=== PATIENT | male | born 1960 | race Caucasian/White ===

== ENCOUNTER 2016-11-11 16:28 | Emergency (ER) | payer MEDICARE, OTHER ==
[~2016-11-11] VITALS: Ht 176.5 cm; Wt 100.0 kg
[~2016-11-11 16:28] MED LIST: ATOR1TAB18 PO; CARV12.52 PO; DEXI60CA3 PO; DIAZ10TA PO; DIGO0.12 PO; FENO160T PO; FISH1000 PO; LISI-360 PO; LISI10TA3 PO; MIRA33502 PO; NITR.4 SL; OMEP20TA39 PO; OMEP40CA2 PO; OXYGENTANK NAS.CANULA; ROSU40 PO; SERT-129 PO; TIZA4TAB PO; VITA20003 PO; WARF-23 PO; WARF5 PO; Z.0.OXYGENDME NC
[2016-11-11 16:31] VITALS: BP 197/102; PULSE 103; RESP 20; TEMP 97.8; O2SAT 94
[2016-11-11 17:00] VITALS: BP 198/101; PULSE 83
[2016-11-11 17:07] VITALS: BP 198/91; PULSE 79; RESP 18; O2SAT 92
[2016-11-11] MEDS ORDERED: SODIUM CHLOR 0.9% 1000 ML INJ 1,000 ML IV SCH (17:21)
[2016-11-11 17:24] LABS: BLOOD, URINE NEG (NEG); COMMENT (UR) CULT NOT INDICATED; CULTURE IF INDICATED CULT NOT INDICATED; GLUCOSE,URINE NEG (NEG); HYALINE CAST, URINE 1 /lpf (RARE); KETONE, URINE NEG (NEG); MUCUS URINE FEW /lpf (OCC); NITRITE,URINE NEG (NEG); PH, URINE 5.5 (5.0-8.5); SQUAMOUS EPITHELIAL CELL URINE <1 /hpf (0-5); URINE COLOR YELLOW (YELLW/STRAW)
[2016-11-11] MEDS ORDERED: SODIUM CHLORIDE 0.9% FLUSH 10 ML FLUSH IV FLUSH PRN (17:30)
[2016-11-11] MEDS ORDERED: ONDANSETRON HCL 4 MG/2 ML VIAL IVP ONE (17:30)
[2016-11-11] MEDS ORDERED: MORPHINE SULFATE 4 MG/ML INJ IV PUSH ONE ×2 (17:30→18:15)
[2016-11-11] MEDS ORDERED: OMEG100046 PO (17:33)
[2016-11-11] MEDS ORDERED: CHOL1TAB42 PO (17:33)
[2016-11-11 17:49] VITALS: O2SAT 97
[2016-11-11 17:57] LABS: AUTOMATED NEUTROPHIL # 7.3 TH/MM3 (1.8-7.7); BASOPHIL % 0.5 % (0.0-2.0); EOSINOPHIL # 0.2 TH/MM3 (0-0.4); EOSINOPHIL % 2.2 % (0.0-4.0); HEMATOCRIT 53.4 % (39.0-51.0); HEMO FLAGS DIFF FINAL; LYMPHOCYTE # 1.3 TH/MM3 (1.0-4.8); MEAN CELL VOLUME 100.7 FL (80.0-100.0); MEAN CORPUSCULAR HEMOGLOBIN 33.4 PG (27.0-34.0); MEAN CORPUSCULAR HGB CONC 33.2 % (32.0-36.0); MONO % 6.2 % (0.0-8.0); NEUT % 77.1 % (16.0-70.0); PLATELET COUNT 122 TH/MM3 (150-450); RED CELL DISTRIBUTION WIDTH 16.3 % (11.6-17.2); WHITE BLOOD COUNT 9.5 TH/MM3 (4.0-11.0)
[2016-11-11 18:00] VITALS: BP 200/104; PULSE 89
[2016-11-11 18:09] LABS: INTERNATIONAL NORMALIZED RATIO 1.3 RATIO; PROTHROMBIN TIME - PATIENT 14.4 SEC (9.8-11.6)
--- NOTE | 2016-11-11 18:12 | PD ---
HPI Chief Complaint: GI Complaint Time Seen by Provider: 17:04 Travel History International Travel<30 days: No Contact w/Intl Traveler<30days: No Traveled to known affect area: No History of Present Illness HPI This is a 56-year-old man who presents to the emergency department complaining of severe left-sided flank pain. He states he had the pain for some time off and on. Usually is fairly mild. Improved with bowel movements. States over the past month or so has been getting progressively worse. Over the past day or 2 it's been excruciating. He states his last bowel movement was this morning , was a little bit loose. He felt constipated for the past week. He did take some Pepto-Bismol last night. He started having nausea and vomiting over the past day or so. He states he's had vomiting before in the morning as well as had bad pain. He has a history of an open AAA repair, as well as an appendectomy. No other abdominal surgeries. He has a history of peripheral vascular disease including celiac stents, and multiple stents and bypass in his legs. He is on warfarin for a history of A. fib and previous DVTs. He also has an IVC filter. History Past Medical History Narrative Medical CAD, history of GA, history of stent CHF, history of AICD AAA, status post open repair PVD, status post grafts in both his legs with reportedly stents in his legs as well, as well as celiac stents Hypertension Hyperlipidemia History tobacco use History of DVT, on warfarin History of A. fib reportedly, on warfarin also Anxiety and depression Social History Alcohol Use: No Tobacco Use: No Allergies-Medications (Allergen,Severity, Reaction): Coded Allergies: Iron (Verified Allergy, Severe, SEVERE CRAMPS AND VOMITING, 11/05/16) Reported Meds & Prescriptions Reported Meds & Active Scripts Active Oxygen tank (Oxygen) 1 Ea Tank 2 Liter JAMEY.CANULA CONTINUOUS PRN Oxygen Concentrator Portable Gaseous 2 L/min via Nasal Cannula Continuous For 99 months Tizanidine (Tizanidine HCl) 4 Mg Tab 8 Mg PO BID Diazepam 10 Mg Tab 10 Mg PO BID PRN Sertraline (Sertraline HCl) 100 Mg Tab 100 Mg PO DAILY Carvedilol 12.5 Mg Tab 12.5 Mg PO BID Fenofibrate 160 Mg Tab 160 Mg PO DAILY Lisinopril 10 Mg Tab 10 Mg PO DAILY Atorvastatin (Atorvastatin Calcium) 80 Mg Tab 80 Mg PO HS Warfarin 5 Mg Tab 5 Mg PO DAILY Digoxin 0.125 Mg Tab 0.125 Mg PO DAILY Omeprazole 40 Mg Cap 40 Mg PO DAILY Reported Vitamin D-3 (Cholecalciferol) 2,000 Unit Tab 2,000 Units PO HS Fish Oil 1,000 mg Softgel ([place]-3/Dha/Epa/Fish Oil) 1,000 Mg Capsule 1,000 Mg PO HS Review of Systems Except as stated in HPI: all other systems reviewed are Neg Physical Exam Narrative GENERAL: 56-year-old man, somewhat ill-appearing, vomiting, pale and clammy. SKIN: Clammy. HEAD: Atraumatic. Normocephalic. EYES: Pupils equal and round. No scleral icterus. No injection or drainage. ENT: No nasal bleeding or discharge. Mucous membranes pink and moist. NECK: Trachea midline. No JVD. CARDIOVASCULAR: Regular rate and rhythm. No murmur appreciated. RESPIRATORY: No accessory muscle use. Clear to auscultation. Breath sounds equal bilaterally. GASTROINTESTINAL: Abdomen is rotund, soft. There is no significant tenderness, a little bit of mild tenderness on the left side but not pronounced. MUSCULOSKELETAL: No obvious deformities. No edema. NEUROLOGICAL: Awake and alert. No obvious cranial nerve deficits. Motor grossly within normal limits. Normal speech. PSYCHIATRIC: Appropriate mood and affect; insight and judgment normal. RECTAL: Soft Light brown stool in the rectal vault. Nonbloody. Data Data Last Documented VS Vital Signs Date Time Temp Pulse Resp B/P Pulse Ox O2 Delivery O2 Flow Rate FiO2 11/11/16 19:56 22 11/11/16 19:50 91 176/94 94 Nasal Cannula 2 11/11/16 16:31 97.8 Orders Urinalysis - C+S If Indicated (11/11/16 16:38) Complete Blood Count With Diff (11/11/16 17:21) Comprehensive Metabolic Panel (11/11/16 17:21) Lipase (11/11/16 17:21) Lactic Acid (11/11/16 17:21) Prothrombin Time / Inr (Pt) (11/11/16 17:21) Act Partial Throm Time (Ptt) (11/11/16 17:21) Ct Abd/Pel W Iv Contrast(Rout) (11/11/16 17:21) Iv Access Insert/Monitor (11/11/16 17:21) Ecg Monitoring (11/11/16 17:21) Oximetry (11/11/16 17:21) Morphine Inj (Morphine Inj) (11/11/16 17:30) Ondansetron Inj (Zofran Inj) (11/11/16 17:30) Sodium Chlor 0.9% 1000 Ml Inj (Ns 1000 M (11/11/16 17:21) Sodium Chloride 0.9% Flush (Ns Flush) (11/11/16 17:30) Morphine Inj (Morphine Inj) (11/11/16 18:15) Iohexol 350 Inj (Omnipaque 350 Inj) (11/11/16 19:07) Labs Laboratory Tests Test 11/11/16 11/11/16 17:02 17:39 Urine Color YELLOW Urine Turbidity CLEAR Urine pH 5.5 Urine Specific [place] 1.022 Urine Protein 100 mg/dL Urine Glucose (UA) NEG mg/dL Urine Ketones NEG mg/dL Urine Occult Blood NEG Urine Nitrite NEG Urine Bilirubin NEG Urine Urobilinogen LESS THAN 2.0 MG/DL Urine Leukocyte Esterase NEG Urine RBC LESS THAN 1 /hpf Urine WBC 1 /hpf Urine Squamous Epithelial <1 /hpf Cells Urine Hyaline Casts 1 /lpf Urine Mucus FEW /lpf Microscopic Urinalysis Comment CULT NOT INDICATED White Blood Count 9.5 TH/MM3 Red Blood Count 5.30 MIL/MM3 Hemoglobin 17.7 GM/DL Hematocrit 53.4 % Mean Corpuscular Volume 100.7 FL Mean Corpuscular Hemoglobin 33.4 PG Mean Corpuscular Hemoglobin 33.2 % Concent Red Cell Distribution Width 16.3 % Platelet Count 122 TH/MM3 Mean Platelet Volume 9.8 FL Neutrophils (%) (Auto) 77.1 % Lymphocytes (%) (Auto) 14.0 % Monocytes (%) (Auto) 6.2 % Eosinophils (%) (Auto) 2.2 % Basophils (%) (Auto) 0.5 % Neutrophils # (Auto) 7.3 TH/MM3 Lymphocytes # (Auto) 1.3 TH/MM3 Monocytes # (Auto) 0.6 TH/MM3 Eosinophils # (Auto) 0.2 TH/MM3 Basophils # (Auto) 0.0 TH/MM3 CBC Comment DIFF FINAL Differential Comment Prothrombin Time 14.4 SEC Prothromb Time International 1.3 RATIO Ratio Activated Partial 35.0 SEC Thromboplast Time Sodium Level 140 MEQ/L Potassium Level 4.7 MEQ/L Chloride Level 107 MEQ/L Carbon Dioxide Level 28.6 MEQ/L Anion Gap 4 MEQ/L Blood Urea Nitrogen 27 MG/DL Creatinine 1.64 MG/DL Estimat Glomerular Filtration 44 ML/MIN Rate Random Glucose 91 MG/DL Lactic Acid Level 1.1 mmol/L Calcium Level 9.1 MG/DL Total Bilirubin 0.5 MG/DL Aspartate Amino Transf 16 U/L (AST/SGOT) Alanine Aminotransferase 25 U/L (ALT/SGPT) Alkaline Phosphatase 93 U/L Total Protein 7.2 GM/DL Albumin 3.4 GM/DL Lipase 264 U/L [facility] Medical Decision Making Medical Screen Exam Complete: Yes Emergency Medical Condition: Yes Interpretation(s) LABS: CBC remarkable for hemoglobin 17.7 CMP remarkable for elevated BUN/creatinine, asthma GFR 44 Lactate 1.1 Lipase normal INR 1.3 UA negative Last Impressions Abdomen/Pelvis CT 11/11/16 1721 Signed Impressions: Service Date/Time: Friday, November 11, 2016 19:04 - CONCLUSION: 1. Extensive abdominal aortic aneurysm extending from the diaphragms to the level just above the bifurcation measuring 5.5 cm AP x 5.6 cm transverse x 15 cm in sagittal dimension. Extensive mural thrombus is noted throughout the aneurysm lumen. 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 2. Occluded left iliac artery. The patient is status post femoral-femoral bypass crossover graft placement. 3. Fatty infiltration of the liver. 4. Multiple left renal cysts. 5. Degenerative changes and scoliosis of the thoracolumbar spine. Steve George MD Differential Diagnosis Mesenteric ischemia, obstruction, constipation, diverticulitis, other Narrative Course Medical decision making INITIAL: 56-year-old man presents to the emergency department complaining of left-sided flank pain. Extensive medical history including history of peripheral vascular disease and celiac disease, open AAA repair, and concern for worsening mesenteric ischemia versus possible obstruction, versus other. We 'll check labs, imaging, pain control, IV fluids, reassess. FINAL: 56 year-old woman, impressive vascular disease. Reviewed his CTA from [facility]. Patient has large AAA that is occluded his SMA, FRANCIS, and celiac. He is basically fell off to collaterals 1 from an internal mammary and one from the femoral artery. I think is having intermittent mesenteric ischemia. He looks well now. Symptoms are chronic in nature but worse over the past couple days. He's feeling much improved now. I spoke with Dr. Chaudhari , the patient's vascular surgeon. He'll follow-up with the patient early this week. Patient's INR is low. They will follow up with her INR clinic tomorrow, will take a double dose of warfarin tonight, and outpatient follow-up with her vascular surgeon. Diagnosis Primary Impression: Chronic mesenteric ischemia Additional Instructions: Follow-up with Dr. Chaudhari's office in the next one to 2 days. Follow-up with your warfarin clinic for further titration of your warfarin doses. Return to the emergency department for any worsening abdominal pain, or any other new or worsening symptoms. Take Lortab if needed for pain. Med/Other Pt SpecificInfo: Prescription(s) given Scripts Hydrocodone-Acetaminophen (Lortab)5-325 Mg Tab1-2 Tab PO Q6H PRN (PAIN) #12 TAB Prov:Brent Lopez MD 11/11/16 Disposition: 01 DISCHARGE HOME Condition: Stable Brent Lopez MD Nov 11, 2016 18:11
[2016-11-11 18:26] LABS: ANION GAP 4 MEQ/L (5-15); AST (GOT) 16 U/L (15-37); BICARBONATE 28.6 MEQ/L (21.0-32.0); BLOOD UREA NITROGEN 27 MG/DL (7-18); CHLORIDE 107 MEQ/L (98-107); GLOMERULAR FILTRATION RATE 44 ML/MIN (>89); POTASSIUM 4.7 MEQ/L (3.5-5.1); SODIUM (NA) 140 MEQ/L (136-145)
[2016-11-11 18:28] LABS: ALT (GPT) 25 U/L (12-78)
[2016-11-11 18:29] LABS: ALKALINE PHOSPHATASE 93 U/L (45-117); TOTAL BILIRUBIN ADULT 0.5 MG/DL (0.2-1.0)
[2016-11-11] MEDS ORDERED: IOHEXOL 350 MG/ML 10 ML VIAL (for RAD DIAG) IV ONE (19:07)
--- NOTE | 2016-11-11 19:32 | RADRPT ---
EXAM DATE/TIME: 11/11/2016 19:04 [facility] COMPARISON: No previous studies available for comparison. INDICATIONS : Left-sided abdominal pain and constipation X one week. IV CONTRAST: 91 cc Omnipaque 350 (iohexol) IV ORAL CONTRAST: No oral contrast ingested. RADIATION DOSE: 17.70 CTDIvol (mGy) MEDICAL HISTORY : Cardiovascular disease. Congestive heart failure. Diabetes mellitus type 2. SURGICAL HISTORY : Appendectomy. ENCOUNTER: Initial ACUITY: 1 week PAIN SCALE: 7/10 LOCATION: Abdomen TECHNIQUE: Volumetric scanning of the abdomen and pelvis was performed. Using automated exposure control and ad justment of the mA and/or kV according to patient size, radiation dose was kept as low as reasonably achievable to obtain optimal diagnostic quality images. DICOM format image data is available electro nically for review and comparison. FINDINGS: There is an extensive abdominal aortic aneurysm extending from the level of the diaphragm inferiorly to just above the level of the aortic bifurcation. This extends for approximately 15 cm. The aneury sm involves the origins of the celiac artery, superior mesenteric artery and renal arteries bilateral ly. 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 The aneurysm measures 5.5 cm AP x 5.6 cm transverse dimension. Extensive mural thrombus is noted within the aneurysm. There is occlus ion of the left iliac artery. The patient has had previous fem-fem crossover graft. There is fatty infiltration of the liver. No focal hepatic mass is noted. No biliary ductal dilatation is noted. There are tiny gallstones within the gallbladder. The pancreas is normal. The spleen is normal. Th e adrenal glands are normal bilaterally. There is marked atrophy of the left kidney. The left kidne y demonstrates multiple cysts. The right kidney is normal in size and demonstrates no hydronephrosis , mass or stone. There is an inferior vena cava filter. No retroperitoneal lymphadenopathy is noted . The urinary bladder is unremarkable. No bowel obstruction is noted. Degenerative changes and sco liosis of the thoracolumbar spine are noted. CONCLUSION: 1. Extensive abdominal aortic aneurysm extending from the diaphragms to the level just above the bifu rcation measuring 5.5 cm AP x 5.6 cm transverse x 15 cm in sagittal dimension. Extensive mural throm bus is noted throughout the aneurysm lumen. There is almost complete occlusion of the left renal art bautista as well as involvement of the origins of the celiac and superior mesenteric artery and the right renal artery. 2. Occluded left iliac artery. The patient is status post femoral-femoral bypass crossover graft pl acement. 3. Fatty infiltration of the liver. 4. Multiple left renal cysts. 5. Degenerative changes and scoliosis of the thoracolumbar spine. Steve George MD on November 11, 2016 at 19:14 Board Certified Radiologist. This report was verified electronically.
[2016-11-11 19:50] VITALS: BP 176/94; PULSE 91; RESP 22; O2SAT 94
[2016-11-11] MEDS ORDERED: HYDR-3533 PO (20:22)
== END 2016-11-11 20:56 | disposition home or self-care (01) ==
LOC: NEPD 16:28
DX: I99.8 Other disorder of circulatory system (principal); R11.2 Nausea with vomiting, unspecified; I10 Essential (primary) hypertension; E78.5 Hyperlipidemia, unspecified; Z79.01 Long term (current) use of anticoagulants; Z86.718 Personal history of other venous thrombosis and embolism; Z86.79 Personal history of other diseases of the circulatory system; Z86.59 Personal history of other mental and behavioral disorders
CPT/HCPCS: 74177; 80053; 81001; 83605; 83690; 85025; 85610; 85730; 96361; 96374; 96375; 96376; 99285; J2270; J2405; J7030; Q9967

== ENCOUNTER 2016-11-13 13:30 | Emergency (ER) | payer MEDICARE ==
[~2016-11-13] VITALS: Ht 177.8 cm; Wt 100.0 kg
[~2016-11-13 13:30] MED LIST changes: +CHOL1TAB42 PO; -DEXI60CA3 PO; -FISH1000 PO; +HYDR-3533 PO; -LISI-360 PO; -MIRA33502 PO; -NITR.4 SL; +OMEG100046 PO; -OMEP20TA39 PO; -ROSU40 PO; -VITA20003 PO; -WARF5 PO; -Z.0.OXYGENDME NC
[2016-11-13 13:31] VITALS: BP 143/79; PULSE 89; RESP 22; TEMP 97.5; O2SAT 86
--- NOTE | 2016-11-13 13:42 | PD ---
Physical Exam Date Seen by Provider: Nov 13, 2016 Time Seen by Provider: 13:39 Data Data Last Documented VS Vital Signs Date Time Temp Pulse Resp B/P Pulse Ox O2 Delivery O2 Flow Rate FiO2 11/13/16 13:31 97.5 89 22 143/79 86 MDM Supervised Visit with VICENTE: No Narrative Course 56 YO M with complaint of abdominal pain. Worsening since being seen earlier this week. States "them pain pills aren't working." HERE FOR PAIN CONTROL Hx mesenteric ischemia. Sees Dr. Chaudhari tomorrow. Vitals reviewed. Patient seen in triage, awaiting bed placement. Ashleigh Sloan Nov 13, 2016 13:42
--- NOTE | 2016-11-13 14:08 | PD ---
HPI Chief Complaint: Pain: Acute or Chronic Time Seen by Provider: 14:08 Travel History International Travel<30 days: No Contact w/Intl Traveler<30days: No Traveled to known affect area: No History of Present Illness HPI 56-year-old male came to the emergency room with history of abdominal pain and flank pain. Patient was here 2 days ago for the same complain when he got a CAT scan which showed severe abdominal aneurysmal disease. The ER physician had discussed the case with the vascular surgeon Dr. Chaudhari. Patient had seen him once before and me. He compared a CT that was done as an outpatient with the CT done 2 days ago and said it did not look any different and plan was to discharge the patient home. However patient says he still in pain and hence came back. Patient is very upset for some reason. Vital signs otherwise stable. PFSH Past Medical History Narrative Medical List of his past medical, surgical, social and family history was reviewed from the nursing note. Hx Anticoagulant Therapy: Yes (WARFARIN) Asthma: Yes Autoimmune Disease: No Anxiety: Yes Depression: Yes Heart Rhythm Problems: Yes Cancer: No Cardiac Catheterization: Yes Cardiovascular Problems: Yes High Cholesterol: Yes Chemotherapy: No Chest Pain: Yes Congestive Heart Failure: Yes COPD: Yes Coronary Artery Disease: Yes Diabetes: Yes Endocrine: Yes Genitourinary: Yes Hypertension: Yes Immune Disorder: No Implanted Vascular Access Dvce: Yes Kidney Stones: No Musculoskeletal: Yes Neurologic: Yes (NEUROPATHY) Psychiatric: No Reproductive: No Respiratory: Yes (COPD) Myocardial Infarction: Yes Radiation Therapy: No Renal Failure: No Sleep Apnea: No Thyroid Disease: No Triglycerides - High: Yes ?: Not Past Surgical History Abdominal Surgery: Yes AICD: Yes Appendectomy: Yes Arteriovenous Shunt: No Cardiac Surgery: Yes (aorta repair ) Coronary Stent: Yes Ear Surgery: No Endocrine Surgery: No Eye Surgery: No Genitourinary Surgery: No Gynecologic Surgery: No Insulin Pump: No Joint Replacement: No Oral Surgery: No Pacemaker: Yes (DEFIB) Thoracic Surgery: No Other Surgery: Yes (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) Social History Alcohol Use: No (OCC) Tobacco Use: No Substance Use: Yes (marijuana) Allergies-Medications (Allergen,Severity, Reaction): Coded Allergies: Iron (Verified Allergy, Severe, SEVERE CRAMPS AND VOMITING, 11/13/16) Comments List of his allergies reviewed from the nursing note. Reported Meds & Prescriptions Reported Meds & Active Scripts Active Hydrocodone-Acetaminophen 5-325 mg Tab 1 Tab PO Q6H PRN Lortab (Hydrocodone-Acetaminophen) 5-325 Mg Tab 1-2 Tab PO Q6H PRN Oxygen tank (Oxygen) 1 Ea Tank 2 Liter JAMEY.CANULA CONTINUOUS PRN Oxygen Concentrator Portable Gaseous 2 L/min via Nasal Cannula Continuous For 99 months Tizanidine (Tizanidine HCl) 4 Mg Tab 8 Mg PO BID Diazepam 10 Mg Tab 10 Mg PO BID PRN Sertraline (Sertraline HCl) 100 Mg Tab 100 Mg PO DAILY Carvedilol 12.5 Mg Tab 12.5 Mg PO BID Fenofibrate 160 Mg Tab 160 Mg PO DAILY Lisinopril 10 Mg Tab 10 Mg PO DAILY Atorvastatin (Atorvastatin Calcium) 80 Mg Tab 80 Mg PO HS Warfarin 5 Mg Tab 5 Mg PO DAILY Digoxin 0.125 Mg Tab 0.125 Mg PO DAILY Omeprazole 40 Mg Cap 40 Mg PO DAILY Reported Vitamin D-3 (Cholecalciferol) 2,000 Unit Tab 2,000 Units PO HS Fish Oil 1,000 mg Softgel ([place]-3/Dha/Epa/Fish Oil) 1,000 Mg Capsule 1,000 Mg PO HS Narrative Medication List of his home medications reviewed from the nursing note. Review of Systems Except as stated in HPI: all other systems reviewed are Neg Physical Exam Narrative GENERAL: Awake, alert, moderate distress SKIN: Focused skin assessment warm/dry. HEAD: Atraumatic. Normocephalic. EYES: Pupils equal and round. No scleral icterus. No injection or drainage. ENT: No nasal bleeding or discharge. Mucous membranes pink and moist. NECK: Trachea midline. No JVD. CARDIOVASCULAR: Regular rate and rhythm. No murmur appreciated. RESPIRATORY: No accessory muscle use. Clear to auscultation. Breath sounds equal bilaterally. GASTROINTESTINAL: Abdomen soft, non-tender, nondistended. Hepatic and splenic margins not palpable. MUSCULOSKELETAL: No obvious deformities. No clubbing. No cyanosis. No edema. NEUROLOGICAL: Awake and alert. No obvious cranial nerve deficits. Motor grossly within normal limits. Normal speech. PSYCHIATRIC: Appropriate mood and affect; insight and judgment normal. Data Data Last Documented VS Vital Signs Date Time Temp Pulse Resp B/P Pulse Ox O2 Delivery O2 Flow Rate FiO2 11/13/16 13:31 97.5 89 22 143/79 86 Orders Morphine Inj (Morphine Inj) (11/13/16 14:45) Radiology Film Requests (11/13/16 ) MDM Medical Decision Making Medical Screen Exam Complete: Yes Emergency Medical Condition: Yes Medical Record Reviewed: Yes Differential Diagnosis Abdominal aneurysm, chronic pain Narrative Course 3:06 PM the vascular surgeon Dr. Chaudhari came down to see the patient. Patient to be followed up in [place]. He is calling [place] himself to have the follow-up arranged. He wants the patient to be discharged home on pain medications. Procedures EKG Prior to Arrival: No Physician Communication Physician Communication Dr. Chaudhari Diagnosis Primary Impression: Abdominal aneurysm Additional Impression: Chronic pain Qualified Code: G89.29 - Other chronic pain Referrals: Primary Care Physician Additional Instructions: Please follow-up in [place] with the surgeon who is name and number been given to you by the vascular surgeon. The appointment is on this Saturday. Take the pain medication as per the prescription direction. Do not drive while taking the medication as it'll make you groggy. Med/Other Pt SpecificInfo: Prescription(s) given Scripts Hydrocodone-Acetaminophen 5-325 mg Tab1 Tab PO Q6H PRN (PAIN) #20 TAB Ref 0 Prov:Oanh Akhtar MD 11/13/16 Disposition: 01 DISCHARGE HOME Condition: Stable Oanh Akhtar MD Nov 13, 2016 14:08
[2016-11-13] MEDS ORDERED: MORPHINE SULFATE 4 MG/ML INJ IV PUSH ONE (14:45)
[2016-11-13] MEDS ORDERED: HYDR-3516 PO (15:10)
--- NOTE | 2016-11-13 16:20 | PD.VS.PN ---
Subjective Subjective/Hospital Course 56 yo male with h/o AAA whom I saw in clinic a couple of weeks ago. He has a known TAAA, L iliac occlusion and SMA, celiac, and L renal artery occlusion. He has flank pain that is not related to po intake and in fact improves with po intake. Had a CT on Saturday and I compared that with the one from 6 weeks ago. Stable TAAA and stable visceral occlusive disease. Objective Vitals/I&O Date Time Temp Pulse Resp B/P Pulse Ox O2 Delivery O2 Flow Rate FiO2 11/13/16 13:31 97.5 89 22 143/79 86 Physical Exam No peritonitis. No reproducible pain. Assessment and Plan Plan I have set him up to be seen at [facility] in [place] on Saturday at 2:15p. He will take a copy of the most recent CT. Steve Chaudhari MD Nov 13, 2016 16:20
== END 2016-11-13 16:01 | disposition home or self-care (01) ==
LOC: NEPD 13:30
DX: I71.4 Abdominal aortic aneurysm, without rupture (principal); G89.29 Other chronic pain; E11.9 Type 2 diabetes mellitus without complications; I10 Essential (primary) hypertension; E78.5 Hyperlipidemia, unspecified; I25.2 Old myocardial infarction; Z79.01 Long term (current) use of anticoagulants; Z86.59 Personal history of other mental and behavioral disorders; Z86.79 Personal history of other diseases of the circulatory system; Z87.09 Personal history of other diseases of the respiratory system; Z87.448 Personal history of other diseases of urinary system; Z87.39 Personal history of other diseases of the musculoskeletal system and connective tissue; Z86.69 Personal history of other diseases of the nervous system and sense organs
CPT/HCPCS: 96374; 99284; J2270

== ENCOUNTER 2016-12-01 22:48 | Emergency (ER) | payer MEDICARE ==
[~2016-12-01 22:48] MED LIST changes: +HYDR-3516 PO
[2016-12-01 22:54] VITALS: BP 137/75; PULSE 82; RESP 21; O2SAT 95
[2016-12-01] MEDS ORDERED: HYDROmorphone HCL PF 1 MG/ML VIAL IVS ONE (23:15)
[2016-12-01] MEDS ORDERED: PERC5TAB12 PO (23:17)
--- NOTE | 2016-12-01 23:17 | PD ---
HPI Chief Complaint: Abdominal Pain Time Seen by Provider: 23:02 Travel History International Travel<30 days: No Contact w/Intl Traveler<30days: No Traveled to known affect area: No History of Present Illness HPI Mr. swift is a 56-year-old male with extensive vascular disease who suffers from [place] chronic mesenteric ischemia. In short, his entire bowel supplied by collaterals from 1 femoral artery and an internal mammary. He's been having worsening abdominal pain over the past couple months. Been gradually worsening. He seen Dr. Chaudhari. [facility] He apparently is going to get a procedure next week. He is not on any pain medicine now and states he still have severe pain. He states the same pain that he's had for the past several weeks. No acute change. History Past Medical History Narrative Medical CAD, history of OK, history of stent CHF, history of AICD AAA, status post open repair PVD, status post grafts in both his legs with reportedly stents in his legs as well, as well as celiac stents Hypertension Hyperlipidemia History tobacco use History of DVT, on warfarin History of A. fib reportedly, on warfarin also Anxiety and depression Tetanus Vaccination: Unknown Social History Alcohol Use: No (OCC) Tobacco Use: No Allergies-Medications (Allergen,Severity, Reaction): Coded Allergies: Iron (Verified Allergy, Severe, SEVERE CRAMPS AND VOMITING, 12/01/16) Reported Meds & Prescriptions Reported Meds & Active Scripts Active Hydrocodone-Acetaminophen 5-325 mg Tab 1 Tab PO Q6H PRN Lortab (Hydrocodone-Acetaminophen) 5-325 Mg Tab 1-2 Tab PO Q6H PRN Oxygen tank (Oxygen) 1 Ea Tank 2 Liter JAMEY.CANULA CONTINUOUS PRN Oxygen Concentrator Portable Gaseous 2 L/min via Nasal Cannula Continuous For 99 months Tizanidine (Tizanidine HCl) 4 Mg Tab 8 Mg PO BID Diazepam 10 Mg Tab 10 Mg PO BID PRN Sertraline (Sertraline HCl) 100 Mg Tab 100 Mg PO DAILY Carvedilol 12.5 Mg Tab 12.5 Mg PO BID Fenofibrate 160 Mg Tab 160 Mg PO DAILY Lisinopril 10 Mg Tab 10 Mg PO DAILY Atorvastatin (Atorvastatin Calcium) 80 Mg Tab 80 Mg PO HS Warfarin 5 Mg Tab 5 Mg PO DAILY Digoxin 0.125 Mg Tab 0.125 Mg PO DAILY Omeprazole 40 Mg Cap 40 Mg PO DAILY Reported Vitamin D-3 (Cholecalciferol) 2,000 Unit Tab 2,000 Units PO HS Fish Oil 1,000 mg Softgel ([place]-3/Dha/Epa/Fish Oil) 1,000 Mg Capsule 1,000 Mg PO HS Review of Systems Except as stated in HPI: all other systems reviewed are Neg Physical Exam Narrative GENERAL: 56-year-old man, little bit chronically ill appearing. No acute distress. HEAD: Atraumatic. Normocephalic. EYES: Pupils equal and round. No scleral icterus. No injection or drainage. ENT: No nasal bleeding or discharge. Mucous membranes pink and moist. NECK: Trachea midline. No JVD. CARDIOVASCULAR: Regular rate and rhythm. No murmur appreciated. RESPIRATORY: No accessory muscle use. Clear to auscultation. Breath sounds equal bilaterally. GASTROINTESTINAL: Abdomen soft, non-tender, nondistended. Hepatic and splenic margins not palpable. MUSCULOSKELETAL: No obvious deformities. Data Data Last Documented VS Vital Signs Date Time Temp Pulse Resp B/P Pulse Ox O2 Delivery O2 Flow Rate FiO2 12/01/16 22:54 82 21 137/75 95 Orders Hydromorphone Pf Inj (Dilaudid Pf Inj) (12/01/16 23:15) MDM Medical Decision Making Medical Screen Exam Complete: Yes Emergency Medical Condition: Yes Differential Diagnosis Chronic mesenteric ischemia, acute mesenteric ischemia, other Narrative Course Medical decision-making. Is a 56-year-old male presents emergency Department with ongoing abdominal pain, related to mesenteric ischemia. He looks overall well. Doesn't appear to be an acute worsening. Simply ongoing pain and not having any pain medications. He is due to follow-up next week with [facility]. I think it would be reasonable to give him pain medicines until then. I don't think to be any value in repeating office diagnostic studies if these had however if he has any worsening pain despite these pain medicines he will come back to the ER for repeat evaluation. Diagnosis Primary Impression: Chronic mesenteric ischemia Additional Instructions: Take Percocet as prescribed. Use MiraLAX if needed for constipation. Follow-up with your surgeon at [facility] as scheduled. Return to the emergency department for any new or worsening symptoms. Med/Other Pt SpecificInfo: Prescription(s) given Scripts Oxycodone-Acetaminophen (Percocet)5-325 mg Tab1-2 Tab PO Q6H PRN (PAIN) #30 TAB Ref 0 Prov:Brent Lopez MD 12/01/16 Disposition: 01 DISCHARGE HOME Condition: Stable Brent Lopez MD Dec 01, 2016 23:17
[2016-12-01] MEDS ORDERED: ONDANSETRON HCL 4 MG/2 ML VIAL ONE (23:32)
[2016-12-02 00:08] VITALS: BP 123/69; TEMP 98.5
[2016-12-04] MEDS ORDERED: IPRA17I INH ×2 (15:10→15:27)
[2016-12-04] MEDS ORDERED: SALM50I INH (15:27)
== END 2016-12-02 00:24 | disposition home or self-care (01) ==
LOC: NEPC 22:48
DX: K55.1 Chronic vascular disorders of intestine (principal)
CPT/HCPCS: 96374; 96375; 99284; J1170; J2405

== ENCOUNTER 2017-04-26 05:41 | Day surgery (SDC) | payer MEDICARE ==
[~2017-04-26] VITALS: Ht 177.8 cm; Wt 101.6 kg
[~2017-04-26 05:41] MED LIST changes: -ATOR1TAB18 PO; +ATOR80TA45 PO; -HYDR-3516 PO; -HYDR-3533 PO; +IPRA17I INH; +OXYGENDME NAS.CANULA; +SALM50I INH
[2017-04-26 06:10] VITALS: BP 143/74; PULSE 74; RESP 16; TEMP 98.5; O2SAT 95
[2017-04-26] MEDS ORDERED: NS 1000 ML IV SCH (06:15)
[2017-04-26] MEDS ORDERED: POVIDONE IODINE 5% (ANTISEPSIS KIT) 4 APPLICATIONS EACH NARE SCH (06:15)
[2017-04-26] MEDS ORDERED: SODIUM CHLORID 0.9% 500 ML IV PRN (06:15)
[2017-04-26] MEDS ORDERED: ceFAZolin 2 GM PREMIX 50 ML IV SCH (06:15)
[2017-04-26] MEDS ORDERED: LORazepam 1 MG TAB SL SCH (06:15)
[2017-04-26] MEDS ORDERED: METOPROLOL TARTRATE 25 MG TAB PO PRN (06:15)
[2017-04-26] MEDS ORDERED: Hold AM Insulin & AM Hypoglycemic medications in diabetic patients PRN (06:15)
[2017-04-26] MEDS ORDERED: VANCOMYCIN 1000 MG/NS 250 ML IV SCH ×2 (06:15)
[2017-04-26] MEDS ORDERED: LACTATED RINGER'S 1000 ML IV PRN (06:15)
[2017-04-26] MEDS ORDERED: INSULIN HUMAN REGULAR 1,000 UNITS/10 ML VIAL SQ PRN (06:15)
[2017-04-26] MEDS ORDERED: POVIDONE IODINE 5% (ANTISEPSIS KIT) 4 APPLICATIONS EACH NARE PRN (06:15)
[2017-04-26] MEDS ORDERED: NO Heparin, Lovenox, Coumadin at least 12 hours prior to procedure. PRN (06:15)
[2017-04-26] MEDS ORDERED: CHLORHEXIDINE GLUCONATE 2 % 1 PACK (2 CLOTHS) TOPICAL PRN (06:15)
[2017-04-26] MEDS ORDERED: MUPIROCIN 2% OINT 1 APPLIC/GM SYR NASAL SCH (06:15)
[2017-04-26] MEDS ORDERED: CHLORHEXIDINE GLUCONATE 2 % 1 PACK (2 CLOTHS) TOPICAL SCH (06:15)
[2017-04-26 07:01] LABS: BASOPHIL # 0.1 TH/MM3 (0-0.2); BASOPHIL % 0.6 % (0.0-2.0); EOSINOPHIL # 0.5 TH/MM3 (0-0.4); EOSINOPHIL % 4.8 % (0.0-4.0); HEMATOCRIT 46.3 % (39.0-51.0); HEMO FLAGS DIFF FINAL; LYMPHOCYTE # 1.4 TH/MM3 (1.0-4.8); MEAN CELL VOLUME 93.6 FL (80.0-100.0); MEAN CORPUSCULAR HEMOGLOBIN 29.6 PG (27.0-34.0); MEAN CORPUSCULAR HGB CONC 31.6 % (32.0-36.0); MONO % 5.3 % (0.0-8.0); NEUT % 74.3 % (16.0-70.0); PLATELET COUNT 130 TH/MM3 (150-450); RED BLOOD COUNT 4.94 MIL/MM3 (4.50-5.90); RED CELL DISTRIBUTION WIDTH 18.4 % (11.6-17.2); WHITE BLOOD COUNT 9.5 TH/MM3 (4.0-11.0)
[2017-04-26 07:13] LABS: INTERNATIONAL NORMALIZED RATIO 3.3 RATIO; PROTHROMBIN TIME - PATIENT 33.5 SEC (9.8-11.6)
[2017-04-26 07:18] LABS: BICARBONATE 38.4 MEQ/L (21.0-32.0); POTASSIUM 4.8 MEQ/L (3.5-5.1)
[2017-04-26] MEDS ORDERED: OMEP20TA93 PO (07:46)
[2017-04-26] MEDS ORDERED: LISI10TA3 PO (07:46)
[2017-04-26] MEDS ORDERED: CARV25TA PO (07:46)
--- NOTE | 2017-04-26 07:49 | EKG ---
Date Performed: 04/26/2017 Time Performed: 07:02:16 PTAGE: 57 years EKG: Sinus rhythm . Left axis deviation Inferior infarct - age undetermined Nonspecific T wave changes Low QRS voltages in precordial leads Abnormal ECG No significant change from prior electrocardiogram. PREVIOUS TRACING : 06/23/2015 15.48 DOCTOR: Gideon Keller Interpretating Date/Time 04/26/2017 07:47:51
[2017-04-26] MEDS ORDERED: ONDANSETRON HCL 4 MG/2 ML VIAL ONE (10:52)
[2017-04-26] MEDS ORDERED: MORPHINE SULFATE 4 MG/ML INJ ONE (10:52)
[2017-04-26] MEDS ORDERED: LIDOCAINE HCL 2% 50 ML VIAL ONE (15:29)
[2017-04-26] MEDS ORDERED: VANCOMYCIN 500 MG VIAL ONE (15:29)
[2017-04-26] MEDS ORDERED: DO NOT ADM ANY ANTICOAGULANT DRUGS PRN (16:45)
--- NOTE | 2017-04-26 16:53 | CATHPROC ---
[facility] HIS Report Study Information Study Number Admission Scheduled Start Study Start [id number] Apr 26 2017 5:41AM 04/26/2017 04/26/2017 [place] Service Cardiac Pacer/ICD Admit Source Facility Department Other [facility] [address] - [employer] Physician and Clinical Staff Initial Claire Tomlinson Deck Hand Nava Funk RN Other Anesthesia, SWEEPING COMPOUND BLENDER Recorder Kip Verma,SHYANNE(BS) ScrNenita Conner RCIS TECH2 Equipment Time Medical Records Receptionist Description Size Mfg Part Number Used/Scraped DERMABOND, ADHESIVE SKIN [id number] 15:25 CORDIS/PACER * Used GLUE MINI *[id number] 15:25 MEDLINE IND[employer] SUTURE, STRIP PLUS 1/2" * Used *[id number] 15:25 MEDLINE PACER QUILES, LIMB * 2530 *[id number] Used [id number] 15:25 MEDLINE PACER PACK, PACER CUSTOM * Used *[id number] 15:51 Needle Sponge Count 20 200 Used 15:51 Needle Sponge Count 3 33 Used 15:51 Needle Sponge Count 3 3 Used SUTURE, 2-0 VICRYL [CT1] ([id number]) [id number] 15:25 [facility],WARM AIR CCL * Used *[id number] [facility] PAD, ELECTROSURGICAL 15:25 * [id number] *[id number] Used SURGICAL GROUNDING ORANGE History: Current Medications Medication Dosage/Unit Route Frequency Last Date/Time Taken Coumadin History: Allergies Allergy Reaction iron SEVERE CRAMPS AND VOMITING ferrous fumarate SEVERE CRAMPS AND VOMITING ferrous sulfate SEVERE CRAMPS AND VOMITING multivitamin with iron,other SEVERE CRAMPS AND VOMITING minerals ferumoxytol SEVERE CRAMPS AND VOMITING multivitamin infusion, adult no.4 SEVERE CRAMPS AND VOMITING with vitamin K Labs Hgb (g/dl) Hct (%) RBC (MIL/MM3) WBC (l/cumm) Platelets (thousands) 11.60-17.00 35.00-51.00 4.00-5.90 4.00-11.00 150.00-450.00 14.6 46.3 4.9 9.5 130 Glucose (mg/dl) BUN (mg/dl) Creatinine (mg/dl) BUN:Creatinine (1:x) 74.00-106.00 7.00-18.00 0.50-1.30 10.00-20.00 113 24 1.3 18.5 Na (meq/l) K (meq/l) Cl (meq/l) CO2 (mmol/L) Ca (mg/dl) 136.00-145.00 3.50-5.10 98.00-107.00 21.00-32.00 8.50-10.10 140 4.8 100 38.4 9.2 PT (sec) PTT (sec) INR (PTT:PT) 9.80-11.60 24.30-30.10 0.90-1.10 33.5 38 3.3 CPK-MB (ng/ML) 0.50-3.60 Not Drawn Medication Medication Total Dose (Bolus/Oral) Medication Total Dosage/Unit 2% XYLOCAINE 50 mL Medications (Bolus/Oral) Medication Time Given Dosage/Unit Administered By Reason 2% XYLOCAINE 04/26/2017 4:19:40 PM 50 mL Claire Pickens 50 mL 2% XYLOCAINE given in lab by Claire Pickens in Left shoulder via Subcutaneous. Medication (Drip) Medication Time Given Dosage/Unit Concentration/Unit Diluent (ml) Solution ANCEF 04/26/2017 3:34:02 PM 2 g 2 g ANCEF given in lab by Anesthesia, SWEEPING COMPOUND BLENDER via Peripheral IV. Ordered by Claire Pickens. IV Solutions 04/26/2017 3:16:58 PM 0 mL (IV) 500 NaCl .9 Patient arrived on IV Solutions in Right Wrist via Peripheral IV. Pump/Drip Flow = 20 ml/hr using NaC l .9. Ordered by Claire Pickens. VANCOMYCIN DRIP 04/26/2017 3:34:00 PM 1 g 1 g VANCOMYCIN DRIP given in lab by Anesthesia, SWEEPING COMPOUND BLENDER in Right Wrist via Peripheral IV. Ordered by Claire Carrera. Initial Case Assessment Cardiovascular HR Rhythm NIBP Chest Pain 62 sr 104/57 0 Edema Present Skin color Skin None Normal Warm Dry Neurological State Oriented to time-place- Lethargic Moves all extremities person Respiration - General Respiration Rate SpO2 (%) (B/min) 18 95 Final Case Assessment Cardiovascular HR Rhythm NIBP Chest Pain 86 sr 130/62 0 Edema Present Skin color Skin None Normal Warm Dry Neurological State Oriented to time-place- Lethargic Moves all extremities person Respiration - General Respiration Rate SpO2 (%) (B/min) 18 95 Chronological Log Time Study Chronological Log 15:16:34 Patient arrived via Bed. 15:16:35 Patient Name, D.O.B, / Armband Verified By R.N. 15:16:35 Consent signed by the physician and the patient and verified by the [employer] staff. 15:16:38 Pre-op and post- op instructions given; patient acknowledges understanding of instruction s. 15:16:50 Patient has been NPO for More than 6Hrs. 15:16:51 Skin Breakdown- none per patient 15:16:51 Patient Warmer Placed on the Table. 15:16:54 Disposable Defibrillator Pads Placed On Patient. 15:16:55 Ramonita Prominences Protected 15:16:56 A # 20 IV was noted in the Wrist (right). Grade = 0 15:16:57 A # 20 IV was noted in the Wrist (left). Grade = 0 Patient arrived on IV Solutions in Right Wrist via Peripheral IV. Pump/Drip Flow = 20 ml/hr usi ng NaCl .9. Ordered by 15:16:58 Claire Pickens. 15:16:59 History and physical on the chart or being dictated. 15:25:28 Table restraints applied according to hospital policy 15:25:35 Bovie ground pad applied to: Right Thigh 15:25:56 2% CHLORHEXIDINE GLUCONATE WASH AND NASAL SWIPE DONE PRIOR TO PROCEDURE. Assessment: Initial Case, HR=62 BPM, Rhythm=sr, GUXD=586/57 mmhg, Chest Pain=0, Edema=None, Col or=Normal, Skin = Warm, Dry 15:26:07 Neurological: State=Lethargic, Ox3, TORRES Respiration: Resp=18 B/min, SpO2=95 % 15:28:42 Reference ECG taken 15:34:00 1 g VANCOMYCIN DRIP given in lab by Anesthesia, SWEEPING COMPOUND BLENDER in Right Wrist via Peripheral IV. Orde red by Claire Pickens. 15:34:02 2 g ANCEF given in lab by Anesthesia, SWEEPING COMPOUND BLENDER via Peripheral IV. Ordered by Claire Pickens. 15:40:54 Left arm and shoulder prepped with 2% chlorhexidine, and draped after with a 3 min. waiting time. 15:46:47 Anesthesia at bedside. Assumes care of patient. First Sponge And Instrument Count Done by Anesthesia, SWEEPING COMPOUND BLENDER. 15:50:24 Hypo's: 3, Sponges: 20, Bovie/scratch: 3 Sutures: 3, Blades: 1, Instruments: 26, Syveck Patches: ~SYVECK PATCH~ 16:09:17 MD arrived. Time Out. Correct patient, procedure, procedure equipment, site and side verified with physicia n present. Time 16:19:02 concurred by MD, individual staff and SWEEPING COMPOUND BLENDER. Time Out #2 - Consents verified, patient in correct position, all results are labled and displa yed, safety precautions 16:19:16 taken, antibiotics administered. Time out concurred by MD, individual staff and SWEEPING COMPOUND BLENDER in procedu re 16:19:16 Case Start 16:19:40 50 mL 2% XYLOCAINE given in lab by Claire Pickens in Left shoulder via Subcutaneous. 16:20:25 Surgical Incision Made. 16:23:27 A device was explanted. A implantable was connected and placed in the pocket. [employer] Ilivia 7 DR-T SN [id number] REF [id number] USE BY: 16:28: Second Sponge And Instrument Count Done by Nava Funk RN. 16:29:46 Hypo's: 3, Sponges: 20, Bovie/scratch: 3 Sutures: ~SUTURE~, Blades: 1, Instruments: ~INSTRU~, Syveck Patches: ~SYVECK PATCH~ 16:29:56 The pocket was closed. The Final Sponge And Instrument Count Done by Nava Funk RN. 16:33:10 Hypo's: 3, Sponges: 20, Bovie/scratch: 3 Sutures: 3, Blades: 1, Instruments: 26, Syveck Patches: ~SYVECK PATCH~ 16:33:19 Case End Assessment: Final Case, HR=86 BPM, Rhythm=sr, FYFB=068/62 mmhg, Chest Pain=0, Edema=None, Color =Normal, Skin = Warm, Dry 16:33:59 Neurological: State=Lethargic, Ox3, TORRES Respiration: Resp=18 B/min, SpO2=95 % 16:34:26 Sterile dressing applied to site 16:34:27 No case complications noted. 16:34:27 Cine recording checked. 16:34:29 Bedside Report will be given. 16:34:30 Implantable Device card placed in patient's chart. 16:34:31 Contrast Scanned 16:49:00 Patient moved to stretcher End Study - Contrast Media Used In Study Contrast Total Opened (mL) Total Used (mL) Total Wasted (mL) Unspecified 0 0 0 End Study - Maximum Contrast Load Max Contrast Load (mL) 390.7 End Study - Radiation Exposure Fluoro Time (minutes) 0.2 End Study - Patient Disposition Complications Transferred To Interventional Outcome No [employer] Holding successful
--- NOTE | 2017-04-26 16:57 | PD.CARD ---
Dual Defib Replacement PROCEDURE DATE: Apr 26, 2017 NYHA Classification: Class II (Mild) Prevention: Secondary Dual Defib Replacement PROCEDURE 1. Dual-chamber defibrillator removal. 2. Dual-chamber defibrillator replacement. 3. Pocket revision. Mr. Garcia is a 57 -year-old male with congestive heart failure, ischemic cardiomyopathy,EF 30% Defibrillator currently end of life, admitted for generator replacement. The risks, the nature and the benefit of the procedure clearly stated to him. The risks include pneumothorax, cardiac perforation, stroke and even . He understood and agreed to proceed. PROCEDURE After written informed consent was obtained, the patient was brought to the EP lab where he was prepped and draped in the usual sterile fashion. Conscious sedation was initiated and maintained throughout the procedure by anesthesiologist. Once sedation was verified, the left infraclavicular area was anesthetized with 2% Xylocaine. Using #11 blade scalpel, a 3-cm incision was made over the existing generator. The incision was then taken down deep fascial layers generator exposed. Once exposed, it was removed from the pocket. Scar tissue was removed around the lead pocket revision was performed. Pocket was expanded. Then, the lead was disconnected from the generator and tested. After adequate pacing and sensing thresholds were obtained. The leads were connected to the new generator and placed into the pocket.Device testing was not performed. I then proceeded with wound closure. The deep fascial layer was approximated using 2-0 Vicryl suture in a continuous fashion. The subcutaneous layer was approximated using 2-0 Vicryl suture in a continuous fashion. The subcuticular layer was approximated using 2-0 Vicryl suture in a continuous fashion. Dermabond adhesive was applied to the wound followed by sterile pressure dressing. There was no complication. The patient tolerated procedure. Blood loss minimal. 1. Explanted hardware: The explanted defibrillator is a [employer] model number 2211-36Q, serial number [id number]. That was implanted in 2009. For information about existing lead please refer to previous dictation. 2. Implanted hardware: The implanted defibrillator generator is a [employer]. model number 829623, serial number [id number]. 3. Threshold: The right atrial pacing threshold in the bipolar mode was 0.5 volt at 0.5 milliseconds. Lead impedance 535 ohms and P-wave at 8.6 mV. The right ventricular pacing threshold in the bipolar mode was 1.5 volts at 0.5 milliseconds. Lead impedance 432 ohms and R-wave at 21.6 mV. 4. Settings: The device is set in a DDD 60, upper limit 120 beats per minute. AV delay extended to maximum facilitate A pacing V sensing. Defibrillatory portioned for two zones, one zone for ventricular tachycardia between 170 to 250 beats per minute. Initial therapy consists of one burst of ATP, one ramp, 81%, 10 pulses, 10 ms decremental followed by 20 then 30 and all subsequent shocks at 40 joules defibrillatory shock. Second zone for ventricular fibrillation above 250 beats per minute, first therapy at 30 and all subsequent shocks at 40 joule defibrillatory shock. CONCLUSIONS Successful defibrillator removal, defibrillator replacement. COMMENT/RECOMMENDATIONS The patient will be transferred to telemetry unit. He will be observed, when stable can be discharged home Claire Pickens MD Apr 26, 2017 16:57
[2017-04-26] MEDS ORDERED: ONDANSETRON HCL 4 MG/2 ML VIAL IV PUSH PRN (17:00)
[2017-04-26] MEDS ORDERED: SODIUM CHLORIDE 0.9% FLUSH 10 ML FLUSH IV FLUSH PRN (17:00)
[2017-04-26] MEDS ORDERED: CEPH-460 PO (17:01)
[2017-04-26] MEDS ORDERED: HYDR-3366 PO (17:01)
[2017-04-26] MEDS ORDERED: SODIUM CHLORIDE 0.9% FLUSH 10 ML FLUSH IV FLUSH SCH (21:00)
== END 2017-04-26 18:40 | disposition home or self-care (01) ==
LOC: HDOC 05:41 → HDIC 05:42 → HDOC 18:40
PROVIDERS: ATTEND Internal Medicine Interventional Cardiology
DX: Z45.02 Encounter for adjustment and management of automatic implantable cardiac defibrillator (principal); I50.9 Heart failure, unspecified; I25.5 Ischemic cardiomyopathy
CPT/HCPCS: 00530; 33263; 80048; 85025; 85610; 85730; 86850; 86900; 86901; 93005; C1721; J2270; J2405; J3370

== ENCOUNTER 2017-08-15 15:08 | Emergency (ER) | payer MEDICARE, OTHER ==
[~2017-08-15] VITALS: Ht 175.3 cm; Wt 103.0 kg
[~2017-08-15 15:08] MED LIST changes: -CARV12.52 PO; +CARV25TA PO; +CEPH-460 PO; -DIGO0.12 PO; -FENO160T PO; +HYDR-3366 PO; -IPRA17I INH; +OMEP20TA93 PO; -OMEP40CA2 PO; -OXYGENDME NAS.CANULA; -OXYGENTANK NAS.CANULA; -SALM50I INH; -TIZA4TAB PO
[2017-08-15 15:14] VITALS: BP 138/75; PULSE 76; RESP 20; TEMP 98.6; O2SAT 90
[2017-08-15 15:30] VITALS: RESP 20; O2SAT 97
[2017-08-15] MEDS ORDERED: CARV12.52 PO (15:36)
[2017-08-15] MEDS ORDERED: TIZA4CAP3 PO (15:36)
[2017-08-15] MEDS ORDERED: RESP: ALBUTEROL 2.5 MG/IPRATROPIUM 0.5 MG NEB (SCH) INH ONE (15:45)
[2017-08-15] MEDS ORDERED: SODIUM CHLORIDE 0.9% FLUSH 10 ML FLUSH IVF PRN (15:45)
[2017-08-15 15:58] VITALS: O2SAT 96
--- NOTE | 2017-08-15 16:00 | RADRPT ---
EXAM DATE/TIME: 08/15/2017 15:46 [place] COMPARISON: CHEST SINGLE AP, June 23, 2015, 16:05. INDICATIONS : Shortness of breath. MEDICAL HISTORY : Hypertension. Myocardial infarction. Chronic obstructive pulmonary disease. Cardiovascular diseas e. Congestive heart failure. Diabetes mellitus type 2. Coronary artery disease. PAD. SURGICAL HISTORY : Pacemaker. Coronary stent. Aorta repair. ENCOUNTER: Initial ACUITY: 1 day PAIN SCORE: 0/10 LOCATION: Bilateral chest FINDINGS: A single view of the chest demonstrates the lungs to be symmetrically aerated without evidence of mas s, infiltrate or effusion. The heart size is enlarged but stable. There is a pacemaker overlying the left chest.. Osseous structures are intact. No new or significant changes. CONCLUSION: No acute disease. No significant change has occurred. Spike Ferrer MD on August 15, 2017 at 15:58 Board Certified Radiologist. This report was verified electronically.
[2017-08-15 16:31] LABS: CHLORIDE 96 MEQ/L (98-107); SODIUM (NA) 139 MEQ/L (136-145)
[2017-08-15 16:33] LABS: AUTOMATED NEUTROPHIL # 4.3 TH/MM3 (1.8-7.7); BASOPHIL # 0.2 TH/MM3 (0-0.2); BASOPHIL % 3.4 % (0.0-2.0); EOSINOPHIL # 0.1 TH/MM3 (0-0.4); EOSINOPHIL % 1.4 % (0.0-4.0); HEMATOCRIT 44.3 % (39.0-51.0); HEMOGLOBIN 13.6 GM/DL (13.0-17.0); LYMPH % 16.9 % (9.0-44.0); MEAN CELL VOLUME 99.2 FL (80.0-100.0); MEAN CORPUSCULAR HEMOGLOBIN 30.5 PG (27.0-34.0); MEAN CORPUSCULAR HGB CONC 30.8 % (32.0-36.0); MEAN PLATELET VOLUME 9.6 FL (7.0-11.0); MONO % 3.3 % (0.0-8.0); MONOCYTE # 0.2 TH/MM3 (0-0.9); PLATELET COUNT 91 TH/MM3 (150-450); RED BLOOD COUNT 4.47 MIL/MM3 (4.50-5.90); RED CELL DISTRIBUTION WIDTH 18.8 % (11.6-17.2); WHITE BLOOD COUNT 5.8 TH/MM3 (4.0-11.0)
[2017-08-15 16:35] LABS: BICARBONATE 41.2 MEQ/L (21.0-32.0); CALCIUM 8.9 MG/DL (8.5-10.1); GLUCOSE,RANDOM 89 MG/DL (74-106)
[2017-08-15 16:36] LABS: BLOOD UREA NITROGEN 25 MG/DL (7-18)
[2017-08-15 16:38] LABS: ALT (GPT) 12 U/L (12-78)
[2017-08-15 16:39] LABS: AST (GOT) 10 U/L (15-37); GLOMERULAR FILTRATION RATE 77 ML/MIN (>89)
[2017-08-15 16:40] LABS: TOTAL BILIRUBIN ADULT 0.2 MG/DL (0.2-1.0); TOTAL PROTEIN 6.5 GM/DL (6.4-8.2)
[2017-08-15 16:41] LABS: ALKALINE PHOSPHATASE 98 U/L (45-117)
[2017-08-15 16:43] LABS: TROPONIN I 0.02 NG/ML (0.02-0.05)
[2017-08-15] MEDS ORDERED: SODIUM POLYSTYRENE SULFONATE SUSP 15 GM/60 ML CUP PO ONE (17:00)
[2017-08-15 17:04] VITALS: BP 140/86; PULSE 72; RESP 20; O2SAT 96
--- NOTE | 2017-08-15 17:07 | PD ---
HPI Chief Complaint: Respiratory Symptoms Time Seen by Provider: 15:22 Travel History International Travel<30 days: No Contact w/Intl Traveler<30days: No Traveled to known affect area: No History of Present Illness HPI This is a 57-year-old male presented to the ER complaining of shortness of breath. Patient was at doctor's office and is saturating in the lower 90s and now is complaining of shortness of breath and the primary care physician brought him to the ER for further evaluation. Patient stays uses 3 L oxygen at home and has been having shortness of breath for the last few days now. Patient says he is unable to afford the inhaler that is why he is getting short of breath. He denies any leg swelling, no chest pain or swelling. Patient has a history of aortic repair surgery and since then he has been taking warfarin. Patient also has a history of CHF and he has a defibrillator placed. PFSH Past Medical History Hx Anticoagulant Therapy: Yes (COUMADIN) Asthma: Yes Autoimmune Disease: No Anxiety: Yes Depression: Yes Heart Rhythm Problems: Yes Cancer: No Cardiac Catheterization: Yes Cardiovascular Problems: Yes High Cholesterol: Yes Chemotherapy: No Chest Pain: Yes Congestive Heart Failure: Yes COPD: Yes Coronary Artery Disease: Yes Diabetes: Yes Patient Takes Glucophage: No Diminished Hearing: No Endocrine: Yes Gastrointestinal Disorders: No Genitourinary: Yes Hiatal Hernia: Yes Hypertension: Yes Immune Disorder: No Implanted Vascular Access Dvce: Yes Kidney Stones: No Musculoskeletal: Yes Neurologic: Yes (NEUROPATHY) Psychiatric: No Reproductive: No Respiratory: Yes (COPD) Myocardial Infarction: Yes Radiation Therapy: No Renal Failure: No Sleep Apnea: No Thyroid Disease: No Triglycerides - High: Yes Past Surgical History Abdominal Surgery: Yes AICD: Yes Appendectomy: Yes Arteriovenous Shunt: No Cardiac Surgery: Yes (aorta repair ) Coronary Stent: Yes Ear Surgery: No Endocrine Surgery: No Eye Surgery: No Genitourinary Surgery: No Gynecologic Surgery: No Insulin Pump: No Joint Replacement: No Oral Surgery: No Pacemaker: Yes (DEFIB) Thoracic Surgery: No Other Surgery: Yes (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) Social History Alcohol Use: No (OCC) Tobacco Use: No Substance Use: Yes (marijuana) Allergies-Medications (Allergen,Severity, Reaction): Coded Allergies: ferrous fumarate (Unverified Allergy, Severe, SEVERE CRAMPS AND VOMITING, 03/27/17) ferrous sulfate (Unverified Allergy, Severe, SEVERE CRAMPS AND VOMITING, 03/27/17) ferumoxytol (Unverified Allergy, Severe, SEVERE CRAMPS AND VOMITING, ) iron (Unverified Allergy, Severe, SEVERE CRAMPS AND VOMITING, 03/27/17) multivitamin infusion, adult no.4 with vitamin K (Unverified Allergy, Severe, SEVERE CRAMPS AND VOMITING, 03/27/17) multivitamin with iron,other minerals (Unverified Allergy, Severe, SEVERE CRAMPS AND VOMITING, 03/27/17) Reported Meds & Prescriptions Reported Meds & Active Scripts Active Atorvastatin (Atorvastatin Calcium) 80 Mg Tab 80 Mg PO HS Diazepam 10 Mg Tab 10 Mg PO BID PRN Sertraline (Sertraline HCl) 100 Mg Tab 100 Mg PO DAILY Warfarin 5 Mg Tab 5 Mg PO DAILY Reported Tizanidine (Tizanidine HCl) 4 Mg Cap 4 Mg PO BID PRN Carvedilol 12.5 Mg Tab 12.5 Mg PO BID Omeprazole 20 Mg Tab 40 Mg PO DAILY Lisinopril 10 Mg Tab 10 Mg PO BID Vitamin D-3 (Cholecalciferol) 2,000 Unit Tab 2,000 Units PO HS Fish Oil 1,000 mg Softgel (Odell-3/Dha/Epa/Fish Oil) 1,000 Mg Capsule 1,000 Mg PO HS Review of Systems Except as stated in HPI: all other systems reviewed are Neg Physical Exam Narrative GENERAL: Alert oriented 3 no acute distress SKIN: Focused skin assessment warm/dry. HEAD: Atraumatic. Normocephalic. EYES: Pupils equal and round. No scleral icterus. No injection or drainage. ENT: No nasal bleeding or discharge. Mucous membranes pink and moist. NECK: Trachea midline. No JVD. CARDIOVASCULAR: Regular rate and rhythm. No murmur appreciated. RESPIRATORY: Mild wheezing bilaterally, no acute distress. Pacemaker in place GASTROINTESTINAL: Abdomen soft, non-tender, nondistended. Hepatic and splenic margins not palpable. MUSCULOSKELETAL: No obvious deformities. No clubbing. No cyanosis. No edema. NEUROLOGICAL: Awake and alert. No obvious cranial nerve deficits. Motor grossly within normal limits. Normal speech. PSYCHIATRIC: Appropriate mood and affect; insight and judgment normal. Data Data Last Documented VS Vital Signs Date Time Temp Pulse Resp B/P (MAP) Pulse Ox O2 Delivery O2 Flow Rate FiO2 08/15/17 15:58 96 Nasal Cannula 3.00 08/15/17 15:30 20 08/15/17 15:14 98.6 76 138/75 (96) Orders Orders Complete Blood Count With Diff (08/15/17 15:36) Comprehensive Metabolic Panel (08/15/17 15:36) B-Type Natriuretic Peptide (08/15/17 15:36) D-Dimer (08/15/17 15:36) Ckmb (Isoenzyme) Profile (08/15/17 15:36) Troponin I (08/15/17 15:36) Urinalysis - C+S If Indicated (08/15/17 15:36) Iv Access Insert/Monitor (08/15/17 15:36) Electrocardiogram (08/15/17 15:36) Ecg Monitoring (08/15/17 15:36) Oximetry (08/15/17 15:36) Oxygen Administration (08/15/17 15:36) Chest, Single Ap (08/15/17 15:36) Sodium Chloride 0.9% Flush (Ns Flush) (08/15/17 15:45) Albuterol-Ipratropium Neb (Duoneb Neb) (08/15/17 15:45) Labs Laboratory Tests Test 08/15/17 16:00 08/15/17 16:25 D-Dimer Quantitative (PE/DVT) 3.15 MG/L FEU Blood Urea Nitrogen 25 MG/DL Creatinine 1.00 MG/DL Random Glucose 89 MG/DL Total Protein 6.5 GM/DL Albumin 3.0 GM/DL Calcium Level 8.9 MG/DL Alkaline Phosphatase 98 U/L Aspartate Amino Transf (AST/SGOT) 10 U/L Alanine Aminotransferase (ALT/SGPT) 12 U/L Total Bilirubin 0.2 MG/DL Sodium Level 139 MEQ/L Potassium Level 5.2 MEQ/L Chloride Level 96 MEQ/L Carbon Dioxide Level 41.2 MEQ/L Anion Gap 2 MEQ/L Estimat Glomerular Filtration Rate 77 ML/MIN Total Creatine Kinase 23 U/L Troponin I 0.02 NG/ML B-Type Natriuretic Peptide 82 PG/ML White Blood Count 5.8 TH/MM3 Red Blood Count 4.47 MIL/MM3 Hemoglobin 13.6 GM/DL Hematocrit 44.3 % Mean Corpuscular Volume 99.2 FL Mean Corpuscular Hemoglobin 30.5 PG Mean Corpuscular Hemoglobin Concent 30.8 % Red Cell Distribution Width 18.8 % Platelet Count 91 TH/MM3 Mean Platelet Volume 9.6 FL Neutrophils (%) (Auto) 75.0 % Lymphocytes (%) (Auto) 16.9 % Monocytes (%) (Auto) 3.3 % Eosinophils (%) (Auto) 1.4 % Basophils (%) (Auto) 3.4 % Neutrophils # (Auto) 4.3 TH/MM3 Lymphocytes # (Auto) 1.0 TH/MM3 Monocytes # (Auto) 0.2 TH/MM3 Eosinophils # (Auto) 0.1 TH/MM3 Basophils # (Auto) 0.2 TH/MM3 CBC Comment AUTO DIFF MDM Medical Decision Making Medical Screen Exam Complete: Yes Emergency Medical Condition: Yes Differential Diagnosis Exacerbation, pneumonia, pneumothorax, pulmonary embolism. Narrative Course This is a 57-year-old male presented here complaining of shortness of breath. There is a history of COPD and he improved nebulized treatment here in the ER. Patient labs are concerning for elevated d-dimer and I wanted to do a CT angiogram of the chest to rule out PE. Patient refused a CAT scan of the chest and states that he really knows that he has a blood clot in his liver and he had CAT scan done a month ago at an outside facility. Patient is eager to go home and does not want any further investigations. I discussed these results with the patient but the patient wants to go home and states that he will follow -up with his primary care physician. Diagnosis Primary Impression: COPD (chronic obstructive pulmonary disease) Qualified Codes: J44.1 - Chronic obstructive pulmonary disease with (acute) exacerbation Disposition: 01 DISCHARGE HOME Condition: Stable Mike Flores MD Aug 15, 2017 17:07
[2017-08-15 17:30] LABS: OVALOCYTES 1+ (NORMAL); STOMATOCYTES 1+ (NORMAL)
--- NOTE | 2017-08-16 10:44 | EKG ---
Date Performed: 08/15/2017 Time Performed: 16:12:47 PTAGE: 57 years EKG: Sinus rhythm Nonspecific T-wave changes POSSIBLE ANTERIOR MYOCARDIAL INFARCTION INFERIOR MYOCARDIAL INFARCTION AB NORMAL ECG PREVIOUS TRACING : 04/26/2017 07.02 Since the previous tracing, no significant change noted DOCTOR: Dejuan Bronson Interpretating Date/Time 08/16/2017 10:42:15
== END 2017-08-15 17:19 | disposition home or self-care (01) ==
LOC: PHED 15:08
DX: J44.1 Chronic obstructive pulmonary disease with (acute) exacerbation (principal); F12.90 Cannabis use, unspecified, uncomplicated; E78.00 Pure hypercholesterolemia, unspecified; I11.0 Hypertensive heart disease with heart failure; I50.9 Heart failure, unspecified; I25.10 Atherosclerotic heart disease of native coronary artery without angina pectoris; Z79.01 Long term (current) use of anticoagulants; Z99.81 Dependence on supplemental oxygen
CPT/HCPCS: 71045; 80053; 82550; 83880; 84484; 85025; 85379; 93005; 94664; 99285